=== PATIENT | female | born 1960 | race Caucasian/White ===

== ENCOUNTER → 2017-08-31 | Outpatient (CLI) | payer BC ==
--- NOTE | 2017-08-31 09:44 | DIAGNOSTIC IMAGING REPORT ---
L SHOULDER MIN 2 VIEWS ROUTINE CLINICAL HISTORY: 57 years-old Female presenting with M25.619, no recent injury, history of humerus fracture and 1990s. TECHNIQUE: Internal rotation, external rotation, and Grashey views of the left shoulder were obtained. COMPARISON: None. FINDINGS: Glenohumeral and acromioclavicular joints congruent. A calcification or ossification is noted immediately inferior to the glenohumeral joint possibly representing a loose body. Osteophytosis at the posterior superior osseous glenoid suggested. The humeral neck is altered in configuration, possibly posttraumatic deformity. No acute fracture or malalignment. No subluxation of the humeral head. Visualized portion of the left hemithorax within normal limits. 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 Electronically signed by: Jesús Wang M.D. 08/31/2017 9:42 AM Dictated Date/Time: 08/31/2017 9:38 AM
== END | disposition home or self-care (01) ==
LOC: C.RAD1850 09:22
PROVIDERS: ATTEND Family Medicine
DX: M25.619 Stiffness of unspecified shoulder, not elsewhere classified (principal)